=== PATIENT | female | born 1980 | race Caucasian/White ===

== ENCOUNTER → 2018-05-08 09:38 | Outpatient (POV) | payer BC, SELFPAY ==
[2018-05-08 12:22] LABS: Adenovirus F 40/41, stool Not Detected (NotDetected); Astrovirus Not Detected (NotDetected); Campylobacter Not Detected (NotDetected); Clostridium Difficile A/B, PCR Not Detected (NotDetected); Cryptosporidium Not Detected (NotDetected); Cyclospora Cayetanesis Not Detected (NotDetected); Entamoeba histolytica Not Detected (NotDetected); Enteroaggregative E coli Not Detected (NotDetected); Enteropathogenic E coli Not Detected (NotDetected); Enterotoxigenic E coli Not Detected (NotDetected); Giardia lamblia Not Detected (NotDetected); Norovirus Not Detected (NotDetected); Plesimonas Shigalloides, PCR Not Detected (NotDetected); Rotavirus A Not Detected (NotDetected); Salmonella, PCR Not Detected (NotDetected); Sapovirus Not Detected (NotDetected); Shiga-like toxin E coli Not Detected (NotDetected); Shigella Enterovasive E coli Not Detected (NotDetected); Vibrio Cholerae Not Detected (NotDetected); Vibrio, PCR Not Detected (NotDetected); Yersinia Entercolitica, PCR Not Detected (NotDetected)
== END ==
PROVIDERS: Visit Provider Nurse Practitioner Acute Care
DX: R19.7 Diarrhea, unspecified (principal); R19.4 Change in bowel habit
CPT/HCPCS: 87507

== ENCOUNTER → 2018-07-04 09:20 | Outpatient (CLI) | payer BC, SELFPAY ==
--- NOTE | 2018-07-04 09:29 | US_ITS ---
US breast LT complete INDICATION: Palpable area behind left nipple ORDERING PHYSICIAN: Mary Mcgraw PATIENT AGE: 38 years COMPARISON: None TECHNIQUE: Left breast ultrasound complete with axilla FINDINGS: No sonographic abnormalities are evident in the retroareolar region. There is however a 1.9 x 1.8 x 0.9 cm well-circumscribed slightly hypoechoic nodule in the 8:00 region of the left breast.. The show some enhanced through transmission of sound. This is parallel to the chest wall and may represent a fibroadenoma. Ultrasound-guided biopsy suggested. IMPRESSION: 1. 1.9 cm well-circumscribed nodule in 8:00 region left breast which may represent a fibroadenoma. Ultrasound guided mammotome biopsy recommended for confirmation. 2. No abnormality evident in the area of palpable concern. Recommend mammogram of the left breast which can be performed at the same time of the biopsy BI-RADS Category: 4 Suspicious Abnormality-Biopsy Considered RECOMMENDED FOLLOW-UP: BIO - BIOPSY RECOMMENDED (A letter has been sent to the patient regarding results of the study.)
== END ==
PROVIDERS: PCP Nurse Practitioner Family; Visit Provider Nurse Practitioner Family
DX: N63.20 Unspecified lump in the left breast, unspecified quadrant (principal)
CPT/HCPCS: 76641

== ENCOUNTER → 2018-07-20 13:29 | Outpatient (CLI) | payer BC, SELFPAY ==
--- NOTE | 2018-07-20 13:43 | MM_ITS ---
MM Dig mamm DX unilat LT CAD INDICATION: Palpable abnormality in the upper aspect of left breast with abnormal ultrasound ORDERING PHYSICIAN: Mary Mcgraw PATIENT AGE: 38 years COMPARISON: 2019 TECHNIQUE: Standard images performed along with spot compression views FINDINGS: Average fibroglandular tissue. No malignant appearing mass or malignant appearing microcalcification. Markers are placed in the area of palpable abnormality in the upper and lower inner left breast. No mammographic abnormalities are evident in this region. There was a 2 cm solid appearing hypoechoic nodule at 8:00 on the ultrasound. This is not demonstrated by mammography. Possibly due to a lipoma. IMPRESSION: The mammogram has an unremarkable appearance. No suspicious nodules are evident. The ultrasound however obtained on 2019 is mildly suspicious and biopsy is suggested. BI-RADS Category: 3 Probably Benign Finding Short Term Follow-up RECOMMENDED FOLLOW-UP: BIO - BIOPSY RECOMMENDED (A letter has been sent to the patient regarding results of the study.)
== END ==
PROVIDERS: PCP Nurse Practitioner Family; Visit Provider Nurse Practitioner Family
DX: N63.20 Unspecified lump in the left breast, unspecified quadrant (principal)
CPT/HCPCS: 77065

== ENCOUNTER → 2018-07-26 09:49 | Outpatient (CLI) | payer BC, SELFPAY ==
--- NOTE | 2018-07-26 09:56 | US_ITS ---
US mammotome bx LT, MM clip placement LT, US Biopsy Breast INDICATION: Left breast nodule, abnormal ultrasound ORDERING PHYSICIAN: Mary Mcgraw PATIENT AGE: 38 years COMPARISON: 07/04/2018 Prebiopsy ultrasound: Ultrasound performed for biopsy planning once again demonstrates a hypoechoic subcutaneous nodule in the 8:00 region of the left breast. The breast was marked for biopsy. TECHNIQUE: Following obtaining informed consent under aseptic conditions and local anesthesia with 1% buffered lidocaine, peripheral anesthesia was obtained. A skin jean carlos was then made with the transducer with buffered lidocaine mixed with epinephrine. 8 gauge mammotomy needle was then inserted and multiple mammotome biopsies were obtained . The nodule of interest with no longer apparent. A clip was then placed. The nodule was not visible by mammogram, a postbiopsy mammogram was not performed. The patient tolerated the procedure well without evidence of immediate complications and left radiology suite in stable condition Pathology: Benign fibroadipose tissue with no significant breast parenchyma. Negative for atypical ductal hyperplasia DCIS or invasive carcinoma. The findings could represent a lipoma. IMPRESSION: Uneventful stereotactic directed biopsy of the left breast on benign findings. Recommend 6 month mammographic and sonographic follow-up per routine protocol
== END ==
PROVIDERS: PCP Nurse Practitioner Family; Visit Provider Nurse Practitioner Family
DX: N63.23 Unspecified lump in the left breast, lower outer quadrant
CPT/HCPCS: 19081; 76942; 77065; C2618

== ENCOUNTER → 2019-09-21 14:07 | Outpatient (CLI) | payer BC, SELFPAY ==
[2019-09-22 08:42] LABS: Covid-19 Nasal PCR Sendout Lex Not Detected
--- NOTE | 2019-09-22 10:01 | PC.NURSE ---
Notified patient of negative COVID-19 results. Paged Mary Mcgraw at this time, results faxed to [facility].
== END ==
PROVIDERS: Visit Provider Nurse Practitioner Family
DX: R50.9 Fever, unspecified (principal); R05 Cough; R06.02 Shortness of breath
CPT/HCPCS: U0003

== ENCOUNTER 2020-08-17 18:01 | Emergency (ER) | payer BC, SELFPAY ==
--- NOTE | 2020-08-17 18:08 | XR_ITS ---
PROCEDURE: XR HIP RT 2-3V W/PELVIS CLINICAL INDICATION: FALL Posttraumatic pain COMPARISON: CR XR FEMUR RT 2V from 08/17/2020 FINDINGS: No fracture or dislocation is evident. No significant degenerative change. No lytic or blastic change. Unremarkable soft tissues. IMPRESSION: No acute findings. Dictated by: Tigre Hickman MD 08/18/2020 05:44 Tigre Hickman MD in [place] 08/18/2020 05:44
[2020-08-17 18:30] VITALS: BP 133/77; PULSE 81; RESP 19; TEMP 37; O2SAT 98; BMI 39.9
--- NOTE | 2020-08-17 18:55 | HMH.EDUTC ---
[facility] Disposition Clinical Impression: Hamstring muscle strain Qualifiers: Encounter type: initial encounter Laterality: right Qualified Code(s): S76.311A - Strain of muscle, fascia and tendon of the posterior muscle group at thigh level, right thigh, initial encounter Pulled hamstring Qualifiers: Encounter type: initial encounter Laterality: right Qualified Code(s): S76.311A - Strain of muscle, fascia and tendon of the posterior muscle group at thigh level, right thigh, initial encounter Disposition: Home, Self-Care Condition on Discharge: Good Instructions: Hamstrings Strain, DI for Hamstring Strain Additional Instructions: *weight bearing as tolerated use crutches to keep as much weight off leg as possible *RICE, Rest the extremity, Ice 15-20 minutes 3-4 times daily, Compress- wear the raymond wrap as discussed as much as possible to help reduce swelling and pain, Elevate the extremity when at rest *Raymond wrap is for support and help control swelling, use it except in the shower. Be sure that is not to tight but not to loose either *Elevate when resting *Ibuprofen every 6-8 hours as needed for pain an inflammation. If need something more can take Tylenol in between doses of Ibuprofen to help Immediately follow up with your family doctor for new or worsening of symptoms, or no noticeable improvement over the next 3-5 days Follow up with Family Doctor for further evaluation and treatment Follow up with Dr Stover in Orthopedics if no improvement may call office for appointment Warm soaks in warm water and epson salt may help with muscle strain Use crutches to walk Straight to ER if any life threatening symptoms Referrals: Mary Mcgraw APRN [Primary Care Provider] - As needed Linwood Stover MD [Staff Physician] - Time of Disposition: 19:06 Medical Decision Making - Eusebio Inquiry Pt receiving controlled substance: No Eusebio was queried for this patient: No Vital Signs: 08/17/20 18:30 08/17/20 19:16 Temperature 98.6 F 98.6 F Temperature Source Oral Pulse Rate 81 Pulse Rate [Right Brachial] 81 Respiratory Rate 19 19 Blood Pressure 133/77 Blood Pressure [Right Arm] 133/77 Blood Pressure Mean [Right Arm] 95 Blood Pressure Source [Right Arm] Automatic Cuff Blood Pressure Position [Right Arm] Sitting 02 Sat by Pulse Oximetry 98 Oxygen Delivery Method Room Air Orders (Tests/Meds): ORDERS Category Date Time Status XR femur RT 2V Stat Exams 08/17/20 18:17 Taken XR hip RT 2-3V w/pelvis Stat Exams 08/17/20 18:08 Taken - Radiology Data #1 Image(s): Femur Image Reviewed: Yes I reviewed the patient's radiology image w/the ED provider Preliminary Findings: No Fracture Seen #2 Image(s): Hip Image Reviewed: Yes I reviewed the patient's radiology image w/the ED provider Preliminary Findings: Normal/NAD, No Fracture Seen [facility] HPI - General Stated complaint: AO08/17@1600 fell, injured r thigh Time Seen by Provider: 08/17/20 18:55 Mode of Arrival: Ambulatory Source of Information: Patient Limitations: No Limitations Description of Symptoms (Recalled from Triage Doc. by RN): PATIENT C/O RIGHT THIGH INJURY AFTER FALLING DOWN BY THE [place] APPROX 1700 TODAY HEENT Symptoms (Recalled from RN notes): No Resp Symptoms (Recalled from RN notes): No Skin Symptoms (Recalled from RN notes): No MS Symptoms (Recalled from RN notes): Yes Functional Status (Recalled from RN notes): WNL - History of Present Illness Provider Complaint: Patient states that she slipped on mud earlier on a bank while looking for her dog and she about did the splits States that her leg went out to the side States that she is now having pain in the back of her upper leg States feels like she pulled or tore something States that she has been walking on it but hurts when she raises the leg - Related Data Home Medications Medication Instructions Recorded Confirmed Escitalopram Oxalate 10 mg PO DAILY 05/17/18 08/17/20 Manolo
[2020-08-17 19:16] VITALS: BP 133/77; PULSE 81; RESP 19; TEMP 37; O2SAT 98
== END 2020-08-17 19:21 | disposition home or self-care (01) ==
PROVIDERS: Emergency Provider Nurse Practitioner; PCP Nurse Practitioner Family
DX: S76.311A Strain of muscle, fascia and tendon of the posterior muscle group at thigh level, right thigh, initial encounter (principal); W01.0XXA Fall on same level from slipping, tripping and stumbling without subsequent striking against object, initial encounter; Y92.89 Other specified places as the place of occurrence of the external cause; I10 Essential (primary) hypertension; F33.1 Major depressive disorder, recurrent, moderate; E66.01 Morbid (severe) obesity due to excess calories; Z68.39 Body mass index [BMI] 39.0-39.9, adult
CPT/HCPCS: 73502; 73552; 99202; G0463

== ENCOUNTER 2021-05-16 21:59 | Emergency (ER) | payer BC, SELFPAY ==
[2021-05-16 22:00] VITALS: BP 144/87; PULSE 68; RESP 16; TEMP 36.8; O2SAT 98; BMI 34.0
--- NOTE | 2021-05-16 22:07 | XR_ITS ---
PROCEDURE INFORMATION: Exam: XR Left Femur Exam date and time: 05/16/2021 10:07 PM Age: 40 years old Clinical indication: Injury or trauma; Fall; Blunt trauma; Thigh or upper leg; Left; Injury date: 05/16/2021; Additional info: Fall abraision left knee TECHNIQUE: Imaging protocol: XR Left femur. Views: 2 views. COMPARISON: No relevant prior studies available. FINDINGS: Bones/joints: No fracture. No malalignment. Soft tissues: Normal. IMPRESSION: No acute findings.
--- NOTE | 2021-05-16 22:07 | XR_ITS ---
PROCEDURE INFORMATION: Exam: XR Left Knee Exam date and time: 05/16/2021 10:07 PM Age: 40 years old Clinical indication: Injury or trauma; Fall; Blunt trauma; Knee; Left; Injury date: 05/16/2021; Additional info: Fall abraision left knee TECHNIQUE: Imaging protocol: XR Left knee. Views: 4 or more views. COMPARISON: CR XR FEMUR LT 2V 05/16/2021 10:15 PM FINDINGS: Bones/joints: No fracture. No malalignment. Soft tissues: Normal. IMPRESSION: No acute findings.
--- NOTE | 2021-05-16 22:07 | XR_ITS ---
PROCEDURE INFORMATION: Exam: XR Left Tibia and Fibula Exam date and time: 05/16/2021 10:07 PM Age: 40 years old Clinical indication: Injury or trauma; Fall; Blunt trauma; Lower leg; Left; Injury date: 05/16/2021; Additional info: Fall abraision on left knee TECHNIQUE: Imaging protocol: XR Left tibia and fibula. Views: 2 views. COMPARISON: No relevant prior studies available. FINDINGS: Bones/joints: No fracture. No malalignment. Soft tissues: Normal. IMPRESSION: No acute findings.
--- NOTE | 2021-05-16 22:08 | HMH.EDGENADL ---
ED Disposition Clinical Impression: Knee pain Qualifiers: Chronicity: acute Laterality: left Qualified Code(s): M25.562 - Pain in left knee Disposition: Home, Self-Care Condition on Discharge: Good Additional Instructions: Take Tylenol and ibuprofen as needed for pain. Follow-up with your primary care doctor. If pain persists, see sports medicine. Return to the ER for any new or worsening symptoms. Referrals: Mary Mcgraw APRN [Primary Care Provider] - - Critical Care Critical Care Time: No Attestation: On , the high probability of a clinically significant, sudden or life threatening deterioration of the following system(s) required my full and direct attention, intervention and personal management. The time I documented below is in addition to time spent performing reported procedures but includes the following listed in this critical care notation. Medical Decision Making - Eusebio Inquiry Pt receiving controlled substance: No Vital Signs: 05/16/21 22:00 Temperature 98.2 F Temperature Source Oral Pulse Rate [Right Radial] 68 Respiratory Rate 16 Blood Pressure [Left Arm] 144/87 H Blood Pressure Mean [Left Arm] 106 Blood Pressure Source [Left Arm] Automatic Cuff Blood Pressure Position [Left Arm] Sitting 02 Sat by Pulse Oximetry 98 Oxygen Delivery Method Room Air Orders (Tests/Meds): ED MEDICATIONS Discontinued Medications Generic Name Dose Route Start Last Admin Trade Name Arturoq PRN Reason Stop Dose Admin Acetaminophen 1,000 mg 05/16/21 22:08 05/16/21 22:38 Acetaminophen 500mg Tab PO 05/16/21 22:09 1,000 mg ONCE ONE Administration Ibuprofen 600 mg 05/16/21 22:08 05/16/21 22:38 Ibuprofen 600 Mg Tablet PO 05/16/21 22:09 600 mg ONCE ONE Administration Medical Decision Narrative: In summary this is a 40-year-old female who presents to the emergency department with left knee pain after fall. Differential diagnosis includes patellar fracture, distal femur fracture, proximal tibia or fibular fracture, ligamentous injury, muscle strain. Given this plan to obtain x-ray of the left femur, knee, tib-fib and reassess. On exam the patient's knee feels stable and her leg is neurovascularly intact. The patient was given Tylenol and ibuprofen for pain. X-rays revealed no acute fracture or dislocation. On reassessment the patient had some improvement with Tylenol and ibuprofen and was able to bear weight and ambulate around the ER. She was given crutches to assist with ambulation encouraged to continue Tylenol and ibuprofen. She will follow up with her primary care doctor next week and we discussed reasons to return to the ER. General Adult HPI - General Stated complaint: AO fall, Lt knee pain 05/16/21 Time Seen by Provider: 05/16/21 22:08 Mode of Arrival: Wheelchair Source of Information: Patient Limitations: No Limitations - History of Present Illness HPI narrative: The patient is a 40-year-old female with history of hypertension who presents to the emergency department with left knee pain after a fall. The patient states she was outside 15 minutes prior to arrival when she slipped in mud causing her left leg to slide out to the side causing her fall. She did not hit her head or lose consciousness. She has no neck or back pain. Her left knee pain is currently an 8 out of 10 and is stinging in nature. She has not taken any medications for pain. She states she has been able to bear weight after and was able to ambulate into her house. - Related Data Home Medications Medication Instructions Recorded Confirmed Escitalopram Oxalate 10 mg PO DAILY 05/17/18 11/04/20 Lisinopril/Hydrochlorothiazide 1 tab PO DAILY 05/17/18 11/04/20 [Lisinopril-Hctz 20-25 mg Tab] Previous Rx's Medication Instructions Recorded amoxicillin 500 mg capsule 500 mg PO Q12H 10 Days #20 cap 11/04/20 Allergies Allergy/AdvReac Type Severity Reaction Status Date / Time No Known A
[2021-05-16 23:19] VITALS: BP 122/75; PULSE 76; RESP 18; TEMP 36.8; O2SAT 99
== END 2021-05-16 23:21 | disposition home or self-care (01) ==
PROVIDERS: Emergency Provider Emergency Medicine; PCP Nurse Practitioner Family
DX: M25.562 Pain in left knee (principal); W01.0XXA Fall on same level from slipping, tripping and stumbling without subsequent striking against object, initial encounter; Y92.019 Unspecified place in single-family (private) house as the place of occurrence of the external cause; F33.1 Major depressive disorder, recurrent, moderate; I10 Essential (primary) hypertension; Z79.899 Other long term (current) drug therapy
CPT/HCPCS: 73552; 73564; 73590; 99282

== ENCOUNTER 2021-11-03 22:47 | Emergency (ER) | payer BC, SELFPAY ==
--- NOTE | 2021-11-03 22:45 | ECG_ITS ---
APPROVED REPORT Exam: Resting ECG HR:70 bpm ECG Measurements Heart Rate 70 AXES HI 177 P 47 QRSd 97 QRS 47 QT 396 T 31 QTc 417 Conclusion SINUS RHYTHM NORMAL ECG UNCONFIRMED REPORT Electronically signed by : Daniele Cerda MD 11/04/2021 16:54:02
[2021-11-03 22:49] VITALS: BP 121/68; PULSE 67; RESP 18; TEMP 37.1; O2SAT 97; BMI 36.9
[2021-11-03 22:51] VITALS: BMI 36.9
--- NOTE | 2021-11-03 22:51 | XR_ITS ---
PROCEDURE INFORMATION: Exam: XR Chest Exam date and time: 11/03/2021 10:54 PM Age: 41 years old Clinical indication: Sternal or substernal pain; Additional info: Chest pain TECHNIQUE: Imaging protocol: XR of the chest. Views: 2 views. COMPARISON: No relevant prior studies available. FINDINGS: Lungs: Unremarkable. No consolidation. Pleural spaces: Unremarkable. No pleural effusion. No pneumothorax. Heart/Mediastinum: Unremarkable. No cardiomegaly. Bones/joints: Unremarkable. IMPRESSION: No acute cardiopulmonary abnormality.
[2021-11-03 22:58] LABS: Basophils # 0.2 K/mm3 (0-0.2); Basophils % 1.8 % (0.1-2.0); Eosinophils # 0.3 K/mm3 (0.0-0.4); Eosinophils % 2.5 % (0.1-12.0); Hematocrit 39.2 % (37.0-47.0); Hemoglobin 13.1 g/dL (12.2-16.2); Lymphocytes # 2.7 K/mm3 (0.7-4.5); Lymphocytes % 20.5 % (10-50); Mean Corpuscular HGB Conc 33.3 g/dL (31.8-35.4); Mean Corpuscular Hemoglobin 25.6 pg (27.0-31.2); Mean Platelet Volume 8.4 fl (7.4-10.4); Monocytes # 0.4 K/mm3 (0.1-1.0); Monocytes % 3.3 % (1.7-9.3); Neutrophils # 9.5 K/mm3 (1.8-7.8); Neutrophils % 71.8 % (37.0-80.0); Platelet Count 302 K/mm3 (142-424); Red Cell Distribution Width 15.8 % (11.5-17.5); White Blood Count 13.2 K/mm3 (4.8-10.8)
[2021-11-03 23:01] LABS: Microscopic, Urine URINE MICROSCOPIC (MICROSCOPIC)
[2021-11-03 23:17] LABS: Appearance,Urine CLEAR (Clear); Bilirubin,Urine Negative (Negative); Blood, Urine Negative (Negative); Color,Urine YELLOW (Yellow); Glucose,Urine (UA) Negative (Negative); Ketones,Urine Negative (Negative); Leukocyte Esterase,Urine 1+ (Negative); Nitrate,Urine Negative (Negative); Protein,Urine Negative (Negative); Specific Gravity, Urine 1.025 (1.005-1.030); Urobilinogen,Urine 0.2 EU/dl (0.2)
[2021-11-03 23:18] LABS: Chloride 98 mmol/L (98-107); Potassium 3.4 mmoL/L (3.5-5.1); Sodium 134 mmol/L (136-145)
[2021-11-03 23:20] LABS: Blood Urea Nitrogen 16 mg/dl (7-17); Creatinine Clearance Estimated 166 mL/min (50-200); Estimated Glomerular Filt Rate 79 ml/min (>60); GFR (African American) 96 ML/MIN (>60)
[2021-11-03 23:21] LABS: Alanine Aminotransferase 25 U/L (12-78); Alkaline Phosphatase 89 U/L (38-126); Anion Gap 12.4 mEq/L (5-15); Aspartate Amino Transferase 29 U/L (14-36); Bilirubin,Direct 0.1 mg/dl (0.0-0.4); Bilirubin,Indirect 0.5 mg/dL (0.0-0.9); Bilirubin,Total 0.6 mg/dl (0.2-1.3); Bilirubin,Unconjugated 0.6 mg/dL (0.0-1.1); Calcium 9.2 mg/dl (8.4-10.2); Carbon Dioxide 27 mmol/L (22.0-30.0); Glucose 232 mg/dl (74-100); Total Protein,Serum 7.5 g/dl (6.3-8.2)
[2021-11-03 23:22] LABS: Urine Pregnancy, HCG Qual. Negative (Negative)
[2021-11-03 23:30] VITALS: BP 132/70; PULSE 63; RESP 16
[2021-11-03 23:39] LABS: Troponin I < 0.01 ng/ml (0.00-0.034)
--- NOTE | 2021-11-03 23:48 | HMH.EDCP ---
ED Disposition Clinical Impression: Radicular pain in left arm, Elevated serum glucose, Elevated erythrocyte sedimentation rate Disposition: Home, Self-Care Condition on Discharge: Good Instructions: DI for Neck Pain Additional Instructions: call pcp for follow up Referrals: Provider,Referral, [Primary Care Provider] - - Critical Care Critical Care Time: No Attestation: On 11/03/21, the high probability of a clinically significant, sudden or life threatening deterioration of the following system(s) required my full and direct attention, intervention and personal management. The time I documented below is in addition to time spent performing reported procedures but includes the following listed in this critical care notation. Medical Decision Making - Medical Records Medical records reviewed: Yes: I reviewed the patient's medical records. - Eusebio Inquiry Pt receiving controlled substance: No Vital Signs: 11/03/21 22:49 11/03/21 23:30 11/04/21 00:00 Temperature 98.8 F Temperature Source Oral Pulse Rate 63 65 Pulse Rate [Right Brachial] 67 Respiratory Rate 18 16 16 Blood Pressure 132/70 119/55 L Blood Pressure [Right Arm] 121/68 Blood Pressure Mean [Right Arm] 85 Blood Pressure Source [Right Arm] Automatic Cuff Blood Pressure Position [Right Arm] Supine 02 Sat by Pulse Oximetry 97 Oxygen Delivery Method Room Air 11/04/21 00:30 Temperature Temperature Source Pulse Rate 63 Pulse Rate [Right Brachial] Respiratory Rate 16 Blood Pressure 129/61 Blood Pressure [Right Arm] Blood Pressure Mean [Right Arm] Blood Pressure Source [Right Arm] Blood Pressure Position [Right Arm] 02 Sat by Pulse Oximetry Oxygen Delivery Method - Lab Data Lab results reviewed: Yes: I reviewed the patient's lab results. Lab Results 11/03/21 22:50: WBC 13.2 H, RBC 5.10, Hgb 13.1, Hct 39.2, MCV 77.0 L, MCH 25.6 L, MCHC 33.3, RDW 15.8, Plt Count 302, MPV 8.4, Neut % (Auto) 71.8, Lymph % (Auto) 20.5, Sampson % (Auto) 3.3, Eos % (Auto) 2.5, Baso % (Auto) 1.8, Neut # (Auto) 9.5 H, Lymph # (Auto) 2.7, Sampson # (Auto) 0.4, Eos # (Auto) 0.3, Baso # (Auto) 0.2 11/03/21 22:50: Sodium 134 L, Potassium 3.4 L, Chloride 98, Carbon Dioxide 27, Anion Gap 12.4, BUN 16, Creatinine 0.80, Estimated Creat Clear 166, Estimated GFR 79, Est GFR ( Amer) 96, Glucose 232 H, Calcium 9.2, Total Bilirubin 0.6, Direct Bilirubin 0.1, Conjugated Bilirubin 0.0, Indirect Bilirubin 0.5, Unconjugated Bilirubin 0.6, AST 29, ALT 25, Alkaline Phosphatase 89, Troponin I < 0.01, Total Protein 7.5, Albumin 4.0 11/03/21 22:50: ESR 119 H 11/03/21 22:50: Hemoglobin A1c 7.3 H 11/03/21 22:56: Urine Color Yellow, Urine Appearance Clear, Urine pH 6.0, Ur Specific [place] 1.025, Urine Protein Negative, Urine Glucose (UA) Negative, Urine Ketones Negative, Urine Blood Negative, Urine Nitrate Negative, Urine Bilirubin Negative, Urine Urobilinogen 0.2, Ur Leukocyte Esterase 1+ A, Urine RBC None, Urine WBC Occasional, Ur Squamous Epith Cells None, Urine Bacteria Trace 11/03/21 22:56: Urine HCG, Qual Negative Result diagrams: 11/03/21 22:50 11/03/21 22:50 Orders (Tests/Meds): ED MEDICATIONS Generic Name Dose Route Start Last Admin Trade Name Freq PRN Reason Stop Dose Admin Sodium Chloride 1,000 mls @ 999 mls/hr 11/03/21 23:00 11/03/21 23:27 Sod Chlor 0.9% 1000ml Bag IV 11/04/21 00:00 999 mls/hr .Q1H1M [facility] Administration ORDERS Category Date Time Status Urine Culture Stat Micro 11/03/21 22:56 Received - Radiology Data #1 Image(s): Chest Image Reviewed: Yes I have reviewed radiologist's interpretation Preliminary Findings: Normal/NAD - CT Data CT Scan: Head Time Received: 02:[address] Reviewed: Yes: I have viewed the radiologist's interpretation Preliminary Findings: Normal/NAD - ECG Data Tracing #1 Normal Sinus Rhythm: Yes Ischemic changes: non-specific ST-T wave changes Medical Decision Narrative:
[2021-11-03 23:50] LABS: Bacteria,Urine Trace /lpf; WBC,Urine Occasional #/hpf (0-3)
[2021-11-04] VITALS: BP 119/55; PULSE 65; RESP 16
--- NOTE | 2021-11-04 | CT_ITS ---
PROCEDURE INFORMATION: Exam: CT Head Without Contrast Exam date and time: 11/04/2021 12:56 AM Age: 41 years old Clinical indication: Dizziness and other: Headache TECHNIQUE: Imaging protocol: Computed tomography of the head without contrast. Radiation optimization: All CT scans at this facility use at least one of these dose optimization techniques: automated exposure control; mA and/or kV adjustment per patient size (includes targeted exams where dose is matched to clinical indication); or iterative reconstruction. COMPARISON: No relevant prior studies available. FINDINGS: Brain: Normal symmetric internal auditory canals. Cerebral ventricles: No ventriculomegaly. Paranasal sinuses: Visualized sinuses are unremarkable. No fluid levels. Mastoid air cells: Visualized mastoid air cells are well aerated. Bones/joints: Unremarkable. No acute fracture. Soft tissues: Unremarkable. IMPRESSION: No evidence of acute intracranial hemorrhage, mass effect, or edema.
--- NOTE | 2021-11-04 00:28 | PC.NURSE ---
warm blankets provided and updated pt on POC
[2021-11-04 00:30] VITALS: BP 129/61; PULSE 63; RESP 16
[2021-11-04 00:45] LABS: Erythrocyte Sedimentation Rate 119 mm/hr (0-20)
--- NOTE | 2021-11-04 00:56 | PC.NURSE ---
advised pt rad would be over to take her for her head CT. no new needs
--- NOTE | 2021-11-04 00:58 | PC.NURSE ---
pt to rad
--- NOTE | 2021-11-04 01:03 | PC.NURSE ---
Pt returned from rad
[2021-11-04 02:18] LABS: Hemoglobin A1C 7.3 % (4.0-6.0)
[2021-11-04 02:35] VITALS: BP 134/71; PULSE 83; RESP 16; TEMP 36.7; O2SAT 95
== END 2021-11-04 02:37 | disposition home or self-care (01) ==
PROVIDERS: Emergency Provider Emergency Medicine
DX: M79.602 Pain in left arm (principal); R73.9 Hyperglycemia, unspecified; R70.0 Elevated erythrocyte sedimentation rate; Z87.440 Personal history of urinary (tract) infections; F32.A Depression, unspecified
CPT/HCPCS: 70450; 71046; 80048; 80076; 81001; 81025; 83036; 84484; 85025; 85651; 87086; 93005; 96365; 96372; 99285

== ENCOUNTER → 2023-04-01 13:05 | Outpatient (CLI) | payer BC, SELFPAY ==
--- NOTE | 2023-04-01 13:05 | US_ITS ---
FINAL REPORT TECHNIQUE: Limited ultrasound imaging of the right elbow was obtained. CLINICAL HISTORY: right elbow soft tissue lump FINDINGS: There is no mass or fluid collection identified. IMPRESSION: Unremarkable exam without mass or fluid collection. Reviewed, Interpreted and Dictated by Troy Sanderson III, MD Transcribed by Marilee Stanley Authenticated and [facility]
--- NOTE | 2023-04-01 13:05 | US_ITS ---
FINAL REPORT TECHNIQUE: Limited ultrasound imaging of the left elbow was obtained. CLINICAL HISTORY: left elbow soft tissue lump FINDINGS: There is no mass or fluid collection identified. IMPRESSION: Unremarkable exam without mass or fluid collection. Reviewed, Interpreted and Dictated by Troy Sanderson III, MD Transcribed by Marilee Stanley Authenticated and [facility]
[2023-04-01 18:10] LABS: Alanine Aminotransferase 31 U/L (12-78); Albumin Level 3.9 g/dl (3.5-5.0); Albumin/Globulin Ratio 1.2 (1.1-1.8); Alkaline Phosphatase 76 U/L (38-126); Anion Gap 17.8 mEq/L (5-15); Aspartate Amino Transferase 32 U/L (14-36); Bilirubin,Total 0.5 mg/dl (0.2-1.3); Blood Urea Nitrogen 16 mg/dl (7-17); Calcium 8.6 mg/dl (8.4-10.2); Carbon Dioxide 26 mmol/L (22.0-30.0); Chloride 97 mmol/L (98-107); Chol/HDL Ratio 4.3 (1-3.5); Cholesterol 156 mg/dl (140-200); Estimated Glomerular Filt Rate 92 ml/min (>60); GFR (African American) 111 ML/MIN (>60); Globulin 3.3 g/dL (1.3-3.2); Glucose 128 mg/dl (74-100); HDL Cholesterol 36 mg/dl (40-60); Hemoglobin A1C 5.2 % (4.0-6.0); Potassium 3.8 mmoL/L (3.5-5.1); Sodium 137 mmol/L (136-145); Total Protein,Serum 7.2 g/dl (6.3-8.2); Triglycerides 161 mg/dl (30-150); VLDL Cholesterol 32 mg/dL (0-40)
[2023-04-01 18:20] LABS: Direct LDL Cholesterol 94.56 mg/dL (100-129)
== END ==
LOC: RAD 13:05
PROVIDERS: PCP Nurse Practitioner Family; Visit Provider Nurse Practitioner Family
DX: R22.33 Localized swelling, mass and lump, upper limb, bilateral (principal); E11.9 Type 2 diabetes mellitus without complications; Z79.84 Long term (current) use of oral hypoglycemic drugs; Z79.85 Long-term (current) use of injectable non-insulin antidiabetic drugs
CPT/HCPCS: 76882; 80053; 80061; 83036

== ENCOUNTER → 2023-05-13 13:38 | Outpatient (CLI) | payer BC, SELFPAY ==
--- NOTE | 2023-05-13 13:43 | XR_ITS ---
FINAL REPORT CLINICAL HISTORY: right elbow pain, knot on posterior side COMPARISON: None FINDINGS: 3 views of the right elbow were obtained. There is no acute fracture or dislocation. The joint spaces are well preserved. There is no acute soft tissue abnormality. IMPRESSION: No acute abnormality identified. Reviewed, Interpreted and Dictated by Richard De Leon MD Transcribed by Elissa Roblero Authenticated and [facility]
== END ==
LOC: RAD 13:40
PROVIDERS: PCP Nurse Practitioner Family; Visit Provider Orthopaedic Surgery
DX: M25.521 Pain in right elbow (principal)
CPT/HCPCS: 73080

== ENCOUNTER 2024-07-20 14:09 | Outpatient (CLI) | payer BC, SELFPAY ==
[2024-07-20 16:46] LABS: Hemoglobin A1C 5.7 % (4.0-6.0)
[2024-07-20 16:51] LABS: Creatinine,Urine Random 116 mg/dL (Not Estab.)
[2024-07-20 16:55] LABS: Albumin Level 4.2 g/dl (3.5-5.0); Chloride 101 mmol/L (98-107); Sodium 136 mmol/L (136-145)
[2024-07-20 16:56] LABS: Microalbumin < 6.000 mg/L (0-16.7)
[2024-07-20 16:57] LABS: Alanine Aminotransferase 22 U/L (12-78); Aspartate Amino Transferase 24 U/L (14-36); Blood Urea Nitrogen 12 mg/dl (7-17); Estimated Glomerular Filt Rate 91 ml/min (>60); GFR (African American) 110 ML/MIN (>60)
[2024-07-20 16:58] LABS: Albumin/Globulin Ratio 1.4 (1.1-1.8); Alkaline Phosphatase 87 U/L (38-126); Bilirubin,Total 0.6 mg/dl (0.2-1.3); Calcium 8.7 mg/dl (8.4-10.2); Carbon Dioxide 26 mmol/L (22.0-30.0); Chol/HDL Ratio 4.9 (1-3.5); Cholesterol 186 mg/dl (140-200); Glucose 98 mg/dl (74-100); HDL Cholesterol 38 mg/dl (40-60); Total Protein,Serum 7.2 g/dl (6.3-8.2); Triglycerides 111 mg/dl (30-150); VLDL Cholesterol 22 mg/dL (0-40)
[2024-07-20 17:15] LABS: 25-OH Vitamin D, Total 20.4 ng/mL (30-100)
[2024-07-21 08:21] LABS: Estradiol 43.2 pg/mL (.); FSH 7.2 mIU/mL (.); LH 4.1 mIU/mL (.); Progesterone 0.1 ng/mL (.)
== END 2024-07-20 23:59 | disposition home or self-care (01) ==
LOC: LAB.DROPOF 07-21 12:01
PROVIDERS: PCP Nurse Practitioner Family; Visit Provider Nurse Practitioner Family
DX: E11.9 Type 2 diabetes mellitus without complications (principal); I10 Essential (primary) hypertension; N92.6 Irregular menstruation, unspecified; E66.9 Obesity, unspecified; Z68.41 Body mass index [BMI] 40.0-44.9, adult; Z79.84 Long term (current) use of oral hypoglycemic drugs; Z79.85 Long-term (current) use of injectable non-insulin antidiabetic drugs; Z13.220 Encounter for screening for lipoid disorders
CPT/HCPCS: 80053; 80061; 82043; 82306; 82570; 82670; 83001; 83002; 83036; 84144; 84443

== ENCOUNTER 2024-11-26 14:29 | Outpatient (CLI) | payer BC, SELFPAY ==
--- OUTSIDE RECORDS SUMMARY | 2024-11-26 14:30 | XMS_ITS | Encounter Summary ---
Author Organization Healthcare Address [address] [place] [address] Care Team Providers Care Field Representatives Director Name Role Phone Mary Mcgraw APRN Primary Care Provider [phone]- [phone] Encounter Details Date Type Department Care Team (Late st Contact Info) Description 07/20/2018 Orders Only External Location [address] [place] [address] Mary Mcgraw APRN [address] [place] [address] Social History Tobacco Use Types Packs/Day Years Used Date Smoking Tobacco: Never Assessed Comments Unknown Sex and Gender Information Value Date Recorded Sex Assigned at Not on file Legal Sex Female 7:57 PM EDT Gender Identity Not on file Sexual Orientation Not on file documented as of this encounter Plan of Treatment Not on file documented as of this encounter Procedures Procedure Name Priority Date/Time Associated Diagnosis Comments MAMMOGRAPHY OUTSIDE IMAGES UPLOAD 07/20/2018 1:55 PM EST documented in this encounter Results * Mammography Outside Images Upload (07/20/2018 1:55 PM EST) Anatomical Region Laterality Modality Mammography 07/20/2018 1:55 PM EST Mary Mcgraw APRN IMG BI PROCEDURES Final Re sult documented in this encounter Visit Diagnoses Not on filedocumented in this encounter Care Teams Field Representatives Director Relationship Specialty Start Date End Date Mary Mcgraw APRN [address] [place] [address] PCP - General 08/27/22 documented as of this encounter
--- OUTSIDE RECORDS SUMMARY | 2024-11-26 14:30 | XMS_ITS | Encounter Summary ---
Author Organization Healthcare Address [address] [place] [address] Care Team Providers Care Silo Man Name Role Phone Mary Mcgraw APRN Primary Care Provider [phone]- [phone] Encounter Details Date Type Department Care Team (Late st Contact Info) Description 07/04/2018 Orders Only External Location [address] [place] [address] Mary Mcgraw APRN [address] [place] [address] Social History Tobacco Use Types Packs/Day Years [...] Procedure Name Priority Date/Time Associated Diagnosis Comments US BREAST OUTSIDE IMAGES UPLOAD 07/04/2018 9:26 AM EST documented in this encounter Results * US Breast Imaging Outside Images Upload (07/04/2018 9:26 AM EST) Anatomical Region Laterality Modality Mammography 07/04/2018 9:26 AM EST Mary Mcgraw APRN IMG BI PROCEDURES Final Re sult documented in this encounter Visit Diagnoses Not on filedocumented in this encounter Care Teams Silo Man Relationship Specialty Start Date End Date Mary Mcgraw APRN [address] [place] [address] (work) PCP - General 08/27/22 documented as of this encounter
--- OUTSIDE RECORDS SUMMARY | 2024-11-26 14:30 | XMS_ITS | Clinical Summary ---
Author Organization [facility] Address [address] [place] [address] Care Team Providers Care Loan Reviewer Name Role Phone Lucien Maryalicia Vera APRN Primary Care Provider +1- [phone] Allergies No known active allergies Medications Blood Glucose Monitoring Suppl (ONE TOUCH ULTRA 2) w/Device kit device kit 1 (one) time each day. use as directed 11/10/2021 Active escitalopram (Lexapro) 20 MG tablet Take 20 mg by mouth 1 (one) time each day. 08/10/2022 Active OneTouch Ultra test strip USE 1 STRIP TO CHECK GLUCOSE ONCE DAILY DIRECTED 11/10/2021 Active Family History Medical History Relation Name Comments Diabetes Father Breast cancer Maternal Grandmother Hypertension Mother Relation Name Status Comments Father Maternal Grandmother Mother Social History Tobacco Use Types Packs/Day Years Used Date Smoking Tobacco: Never Smokeless Tobacco: Never Tobacco Cessation:Counseling Given: Not Answered Alcohol Use Standard Drinks/Week Comments Never 0 (1 standard drink = 0.6 oz pur e alcohol) Comments No Sex and Gender Information Value Date Recorded Sex Assigned at Not on file Legal Sex Female 7:57 PM EDT Gender Identity Not on file Sexual Orientation Not on file Last Filed Vital Signs Vital Sign Reading Time Taken Comments Blood Pressure 125/82 08/31/2022 3:09 PM EDT Pulse - - Temperature - - Respiratory Rate - - Oxygen Saturation - - Inhaled Oxygen Concentration - - Weight 126 kg (277 lb 5.4 oz) 08/31/2022 3:09 PM EDT Height - - Body Mass Index - - Plan of Treatment Health Maintenance Due Date Last Done Comments [facility]-Depression Screening 1980 [facility]-HIV Screening 1980 [facility]-Hepatitis C Screening 1980 [facility]-Infant/Child/Adol SDOH Screenings 1980 HPV Vaccines (1 - 3-dose series) 1995 [facility]- SDOH Screenings 1998 [facility]-Adult SDOH Screenings 1998 [facility]-Pap Smear 2001 [facility]-Cervical Cancer Screening 2010 [facility]-HPV/Cotest 2010 [facility]-Hepatitis B Vaccines (3 of 3 - 19+ 3-dose series) 03/28/2014 01/31/2014, 09/07/2013 [facility]-Varicella Vaccines (2 of 2 - 13+ 2-dose series) 03/21/2015 02/21/2015 [facility]-DTaP,Tdap,and Td Vaccines (7 - Td or Tdap) 09/08/2023 09/07/2013, 06/28/2005, 02/16/1982, Additional history exists [id number] Vaccine (2023- season) 2024 02/10/2022, 04/30/2021, 06/19/2020, Additional history exists [facility]-Zoster Vaccines (1 of 2) 2030 02/21/2015 [facility]-HIB Vaccines Completed 02/16/1982 [facility]-IPV Vaccines Aged Out 06/28/2005, , 01/29/1981, Additional history exists No longer eligible based on patient's age to complete this topic [facility]-Hepatitis A Vaccines Aged Out 07/10/2014, 08/28 No longer eligible based on patient's age to complete this topic [facility]-Pneumococcal Vaccine: Pediatrics (0 to 5 Years) and At-Risk Patients (6 to 49 Years) Aged Out 11/15/2021 No longer eligible based on patient's age to complete this topic [facility]-Influenza Vaccine Completed 04/06/2024, 023 [facility]-Rotavirus Vaccines Aged Out No lo nger eligible based on patient's age to complete this topic Insurance ANTHEM Care Teams Loan Reviewer Relationship Specialty Start Date End Date Mary Mcgraw APRN [address] [place] [address] PCP - General 08/27/22
--- OUTSIDE RECORDS SUMMARY | 2024-11-26 14:30 | XMS_ITS | Encounter Summary ---
Author Organization [facility] Address [address] [place] [address] Care Team Providers Care Job Change Crew Member Name Role Phone Mary Mcgraw APRN Primary Care Provider +1- [phone] Encounter Details Date Type Department Care Team (Late st Contact Info) Description 07/26/2018 Orders Only External Location [address] [place] [address] Mary Mcgraw APRN [address] [place] [address] Social History Tobacco Use Types [...] Diagnosis Comments US BREAST OUTSIDE IMAGES UPLOAD 07/26/2018 10:14 AM EST documented in this encounter Results * US Breast Imaging Outside Images Upload (07/26/2018 10:14 AM EST) Anatomical Region Laterality Modality Mammography 07/26/2018 10:1 4 AM EST us Mary Mcgraw APRN IMG BI PROCEDURES Final Re sult documented in this encounter Visit Diagnoses Not on filedocumented in this encounter Care Teams Job Change Crew Member Relationship Specialty Start Date End Date Mary Mcgraw APRN [address] [place] [address] PCP - General 08/27/22 documented as of this encounter
--- OUTSIDE RECORDS SUMMARY | 2024-11-26 14:30 | XMS_ITS | Encounter Summary ---
Author Organization [facility] Address [address] [place] [address] Care Team Providers Care [employer] Distribution Consultant Name Role Phone Mary Mcgraw APRN Primary Care Provider +1- [phone] Encounter Details Date Type Department Care Team (Late st Contact Info) Description 07/26/2018 Orders Only External Location [address] [place] [address] Mary Mcgraw APRN [address] [place] [id number] Social History Tobacco Use Types Packs/Day Years [...] Associated Diagnosis Comments MAMMOGRAPHY OUTSIDE IMAGES UPLOAD 07/26/2018 11:57 AM EST documented in this encounter Results * Mammography Outside Images Upload (07/26/2018 11:57 AM EST) Anatomical Region Laterality Modality Mammography 07/26/2018 11:5 7 AM EST Mary Mcgraw APRN IMG BI PROCEDURES Final Re sult documented in this encounter Visit Diagnoses Not on filedocumented in this encounter Care Teams [employer] Distribution Consultant Relationship Specialty Start Date End Date Mary Mcgraw APRN [address] [place] [address] PCP - General 08/27/22 documented as of this encounter
--- OUTSIDE RECORDS SUMMARY | 2024-11-26 14:30 | XMS_ITS | Encounter Summary ---
Author Organization [facility] Address [address] [place] [address] Care Team Providers Care Legal Support Specialist Name Role Phone Mary Mcgraw APRN Primary Care Provider +1- [phone] Encounter Details Date Type Department Care Team (Late st Contact Info) Description 07/20/2018 Orders Only External Location [address] [place] [address] Mary Mcgraw APRN [address] [place] [address] Social History Tobacco Use Types [...] on filedocumented in this encounter Care Teams Legal Support Specialist Relationship Specialty Start Date End Date Mary Mcgraw APRN [address] [place] [address] PCP - General 08/27/22 documented as of this encounter
--- OUTSIDE RECORDS SUMMARY | 2024-11-26 14:30 | XMS_ITS | Encounter Summary ---
Author Organization [facility] Address [address] [place] [address] Care Team Providers Care [employer] Workers Name Role Phone Mary Mcgraw APRN Primary Care Provider +1- [phone] Encounter Details Date Type Department Care Team (Late st Contact Info) Description 07/26/2018 Orders Only External Location [address] [place] [address] Mary Mcgraw APRN [address] [place] [address] Social History Tobacco Use Types [...] on filedocumented in this encounter Care Teams [employer] Workers Relationship Specialty Start Date End Date Mary Mcgraw APRN [address] [place] [address] PCP - General 08/27/22 documented as of this encounter
--- NOTE | 2024-11-26 14:31 | XR_ITS ---
FINAL REPORT TECHNIQUE: Right elbow 3 views CLINICAL HISTORY: pain pt states golfers elbow COMPARISON: None FINDINGS: RIGHT ELBOW: 3 images of the right elbow were obtained. There is no evidence of fracture or dislocation. The joint spaces are intact. There is no soft tissue abnormality identified. IMPRESSION: No acute bony abnormality. Reviewed, Interpreted and Dictated by Richard De Leon MD Transcribed by Kecia Ordonez Authenticated and [facility]
== END 2024-11-26 23:59 | disposition home or self-care (01) ==
LOC: RAD 14:29
PROVIDERS: PCP Nurse Practitioner Family; Visit Provider Physician Assistant Surgical
DX: M25.521 Pain in right elbow (principal)
CPT/HCPCS: 73080